=== PATIENT | female | born 1945 | race Two or more races ===

== ENCOUNTER 2019-06-28 14:04 | Emergency (ER) | payer MEDICARE, BC ==
[~2019-06-28] VITALS: Ht 157.5 cm; Wt 60.3 kg
[2019-06-28 14:15] VITALS: BP 212/102
[2019-06-28] MEDS ORDERED: ASPIRIN EC 81 MG TABLET.DR PO ONE ×2 (14:30→14:32)
--- NOTE | 2019-06-28 14:30 | NUR ---
sent m PMD office for chest pain eval. pt sts symptoms x 5 days. Patient a/ox4, breathing even and unlabored, no sob noted, needs attended, denies pain at this time. Kept comfortable. Patient is refusing iv insertion and blood draw explained risks and benefits. Dr. Toledo made aware.
[2019-06-28] MEDS ORDERED: ASPIRIN 81 MG TAB.CHEW ONE (14:31)
--- NOTE | 2019-06-28 15:10 | NUR ---
patient eloped, didn't wait for MD to talk to family and patient.
== END 2019-06-28 15:11 | disposition left against medical advice (07) ==
LOC: ER 14:09
DX: R07.89 Other chest pain (principal); I10 Essential (primary) hypertension; E11.9 Type 2 diabetes mellitus without complications